=== PATIENT | female | born 1945 | race African-American/Black ===

== ENCOUNTER → 2017-09-28 | Outpatient (CLI) | payer OTHER | END | disposition home or self-care (01) | LOC: PCVCIMAG 08:38 | DX: I08.0 Rheumatic disorders of both mitral and aortic valves (principal); R06.00 Dyspnea, unspecified | CPT/HCPCS: 93306 ==

== ENCOUNTER → 2018-04-01 | Outpatient (CLI) | payer OTHER ==
--- NOTE | 2018-04-01 11:15 | PCVCIMAG ---
APPROVED REPORT Study performed: 04/01/2018 09:59:55 EXAM: Comprehensive 2D, Doppler, and color-flow Echocardiogram Patient Location: Echo lab Room #: 2Status: routine BSA: 1.81 HR: 72 bpm Rhythm: NSR Other Information Study Quality: Adequate Risk Factors: Cardiac Risk Factors: HTN, Hyperlipidemia, DM Indications Mitral Valve Disease Mitral Valve Prolapse Diabetes Hypertension/HDD 2D Dimensions IVSd: 8.66 (7-11mm)LVOT Diam: 18.31 (18-24mm) LVDd: 42.41 mm PWd: 7.13 (7-11mm)Ascending Ao: 29.75 (22-36mm) LVDs: 24.86 (25-40mm) Left Atrium: 41.52 (27-40mm) Aortic Root: 25.58 mm LV Single Plane 4CH: 53.65 % LV Single Plane 2CH: 60.26 % Biplane EF: 56.9 % Volumes Left Atrial Volume (Systole) Single Plane 4CH: 61.05 mLSingle Plane 2CH: 93.89 mL Biplane LA Volume: 84.00 mLLA ESV Index: 46.00 mL/m2 Aortic Valve AoV Peak Sony.: 1.36 m/s AO Peak Gr.: 7.99 mmHgLVOT Max P.17 mmHg LVOT Max V: 0.89 m/s KALINA Vmax: 1.72 cm2 AI Vmax: 4.61 m/s AI Alfalfa: 1.74 m/s2 AI PHT: 772.37 ms Mitral Valve E/A Ratio: 0.7 MV Decel. Time: 117.82 ms MV E Max Sony.: 0.63 m/s MV A Sony.: 0.88 m/s MV Max Sony.: 5.28 m/s MV Mean Sony.: 3.89 m/s IVRT: 96.89 ms Pulmonary Valve PV Peak Sony.: 0.62 m/sPV Peak Gr.: 1.54 mmHg Pulmonary Vein P Vein S: 0.56 m/sP Vein A: 0.79 m/s P Vein D: 0.41 m/sP Vein A Dur.: 131.5 msec P Vein S/D Ratio: 1.37 Tricuspid Valve TR Peak Sony.: 2.42 m/s TR Peak Gr.: 23.34 mmHg TV Vmax: 1.28 m/sPA Pressure: 30.00 mmHg Left Ventricle The left ventricle is normal size. There is normal LV segmental wall motion. There is normal left ventricular wall thickness. Left ventricular systolic function is normal. The left ventricular ejection fraction is within the normal range. LVEF is 55-60%. Grade I - abnormal relaxation pattern. Right Ventricle The right ventricle is normal size. The right ventricular systolic function is normal. Atria Left atrium is moderately dilated. The right atrium size is normal. Aortic Valve The aortic valve is normal in structure. Mild aortic regurgitation. There is no aortic valvular stenosis. 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 Tricuspid Valve The tricuspid valve is normal in structure. Mild tricuspid regurgitation with a PA pressure of 30 mmHg. Pulmonic Valve The pulmonary valve is normal in structure. There is no pulmonic valvular regurgitation. Great Vessels The aortic root is normal in size. The ascending aorta is normal in size. Aortic arch is normal in caliber. IVC is normal in size and collapses >50% with inspiration. Pericardium There is no pericardial effusion. There is no pleural effusion. <Conclusion> The left ventricle is normal size. Left ventricular systolic function is normal. Grade I - abnormal relaxation pattern. The right ventricle is normal size. Left atrium is moderately dilated. Mild aortic regurgitation. 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
== END | disposition home or self-care (01) ==
LOC: PCVCIMAG 10:08
PROVIDERS: ATTEND Internal Medicine Cardiovascular Disease
DX: I08.3 Combined rheumatic disorders of mitral, aortic and tricuspid valves (principal); I10 Essential (primary) hypertension; E78.00 Pure hypercholesterolemia, unspecified; E11.9 Type 2 diabetes mellitus without complications
CPT/HCPCS: 93306

== ENCOUNTER → 2019-04-18 | Outpatient (CLI) | payer OTHER ==
--- NOTE | 2019-04-18 10:08 | PCVCIMAG ---
APPROVED REPORT Study performed: 04/18/2019 09:14:38 EXAM: Comprehensive 2D, Doppler, and color-flow Echocardiogram Patient Location: Echo lab Status: routine BSA: 1.73 HR: 78 bpmBP: 138/76 mmHg Rhythm: NSR Other Information Study Quality: Adequate Risk Factors: Cardiac Risk Factors: HTN, DM Indications Mitral Valve Prolapse mitral regurgitation 2D Dimensions IVSd: 13.28 (7-11mm) LVDd: 38.18 mm PWd: 12.65 (7-11mm) LVDs: 22.24 (25-40mm) Left Atrium: 46.58 (27-40mm) Aortic Root: 34.04 mm LV Single Plane 4CH: 48.07 % LV Single Plane 2CH: 48.77 % Biplane EF: 49.9 % Volumes Left Atrial Volume (Systole) Single Plane 4CH: 83.96 mLSingle Plane 2CH: 64.96 mL LA ESV Index: 46.00 mL/m2 Aortic Valve AoV Peak Sony.: 1.45 m/s AO Peak Gr.: 8.42 mmHgLVOT Max P.24 mmHg LVOT Max V: 1.03 m/s AI Vmax: 5.05 m/s AI Maury: 2.81 m/s2 AI PHT: 522.18 ms Mitral Valve E/A Ratio: 0.6 MV Decel. Time: 336.05 ms MV E Max Sony.: 0.58 m/s MV A Sony.: 0.98 m/s IVRT: 148.79 ms Pulmonary Valve PV Peak Sony.: 0.71 m/sPV Peak Gr.: 2.04 mmHg Pulmonary Vein P Vein S: 0.32 m/sP Vein A: 0.90 m/s P Vein D: 0.42 m/sP Vein A Dur.: 183.4 msec P Vein S/D Ratio: 0.76 Tricuspid Valve TR Peak Sony.: 2.54 m/s TR Peak Gr.: 25.81 mmHg Left Ventricle The left ventricle is normal size. There is normal LV segmental wall motion. Left ventricular systolic function is normal. The left ventricular ejection fraction is within the normal range. LVEF is 55%. Grade I - abnormal relaxation pattern. Right Ventricle The right ventricle is normal size. The right ventricular systolic function is normal. Atria Left atrium is moderately dilated. Right atrium is mildly dilated. Aortic Valve The aortic valve is normal in structure. Mild aortic regurgitation. There is no aortic valvular stenosis. Mitral Valve The mitral valve leafletsappear myxomatous. Moderate to severe mitral regurgitation No evidence of mitral valve stenosis. Anterior mitral valve prolapse is present. Tricuspid Valve The tricuspid valve is normal in structure. Mild tricuspid regurgitation with PAP of 33 mmHg. Pulmonic Valve The pulmonary valve is normal in structure. Mild pulmonic regurgitation. Great Vessels The aortic root is normal in size. IVC is normal in size and collapses >50% with inspiration. Pericardium There is no pericardial effusion. There is no pleural effusion. <Conclusion> The left ventricle is normal size. Left ventricular systolic function is normal. Grade I - abnormal relaxation pattern. The right ventricle is normal size. Left atrium is moderately dilated. Right atrium is mildly dilated. Mild aortic regurgitation. The mitral valve leafletsappear myxomatous. Anterior mitral valve prolapse is present. Moderate to severe mitral regurgitation Mild tricuspid regurgitation with PAP of 33 mmHg.
== END | disposition home or self-care (01) ==
LOC: PCVCIMAG 09:08
PROVIDERS: ATTEND Internal Medicine Cardiovascular Disease
DX: I08.3 Combined rheumatic disorders of mitral, aortic and tricuspid valves (principal); I10 Essential (primary) hypertension; E78.00 Pure hypercholesterolemia, unspecified; E11.9 Type 2 diabetes mellitus without complications; E78.5 Hyperlipidemia, unspecified; Z79.84 Long term (current) use of oral hypoglycemic drugs
CPT/HCPCS: 93306